=== PATIENT | female | born 2000 | race Hispanic/Latino ===

== ENCOUNTER 2020-07-10 18:09 | Emergency (ER) | payer SELFPAY ==
[2020-07-10] VITALS (12 sets, daily range): BP systolic 115–135; BP diastolic 64–82; PULSE 89–109; RESP 18–26; TEMP 36.1; O2SAT 98–100
--- NOTE | ~2020-07-10 | CT_ITS ---
EXAMINATION: CT abdomen pelvis w con DATE: 07/10/2020 20:07 INDICATION: Epigastric abdominal pain. TECHNIQUE: Computed tomography (CT) of the abdomen and pelvis was performed with 100 mL Omnipaque 350 intravenous contrast. Automated exposure control and iterative reconstruction technique were employe d. The dose-length product was 379.85 mGy-cm. COMPARISON: CT abdomen and pelvis 05/10/2017 FINDINGS: The visualized portions of the lung bases demonstrate minimal atelectasis. No pleural effus ion. The heart size is normal. No pericardial effusion. The liver, gallbladder, spleen, pancreas, adr enal glands, and kidneys are normal. There are no dilated loops of bowel. The appendix is normal. The re are no pathologically enlarged lymph nodes. There is no free intraperitoneal fluid. The bladder is distended. The bones are unremarkable. IMPRESSION: 1. No etiology for the patient's symptoms. Reviewed, dictated and finalized at location A. EED OIL REFINER
--- NOTE | 2020-07-10 18:25 | ED.GENADULT ---
HPI - General Adult General Chief complaint: Abdominal Pain Stated complaint: abd pain Time Seen by Provider: 07/10/20 18:10 Source: patient and family Mode of arrival: ambulatory Limitations: language barrier History of Present Illness HPI narrative: Patient is a 19-year-old female who presents with epigastric abdominal pain that began just prior to arrival patient had eaten some bread and had coffee prior to onset attentionally has had a similar occurrence in the past does take a medicine for reflux unsure as to the name patient presents uncomfortable notes that she has had some nausea and vomiting. Patient denies other injuries or complaints or symptoms. Pain does radiate to the back Related Data Allergies Allergy/AdvReac Type Severity Reaction Status Date / Time No Known Allergies Allergy Verified 07/10/20 18:28 Review of Systems Review of Systems: All systems reviewed & are unremarkable except as noted in HPI and below PMFSH Past Medical History Medical History (Updated 07/10/20 @ 20:29 by Tank Ziegler PA-C) GERD (gastroesophageal reflux disease) Social History Social History (Updated 07/10/20 @ 18:26 by Tank Ziegler PA-C) Smoking status: Never smoker Gender identity (if verbalized by the patient): Female Exam Narrative: Exam Narrative: GENERAL: Well-appearing, well-nourished, uncomfortable and in acute pain distress. HEAD: Normocephalic, atraumatic. EYES: PERRLA and EOMI. ENT: Nares clear, no rhinorrhea or epistaxis. Mucous membranes moist. CHEST: Clear to auscultation. No respiratory distress. No wheezes rales or rhonchi HEART: Regular rate and rhythm. No murmur heard. Normal peripheral pulses. ABDOMEN: Soft, generalized abdominal tenderness worse in the epigastrium, nondistended EXTREMITIES: Normal range of motion. No edema. SKIN: Warm, dry, no rash. NEURO: No focal deficits. Alert and oriented x3. PSYCH: Normal mood and affect. Course Course Emergency Course: Patient in the room feeling much better at this time had evaluation without high risk changes in the blood work or imaging could potentially be reflux or gastritis in relation patient advised to follow with her primary care on Sunday noting she will patient also notes she will follow with the provided GI referral has been given reasons to return and agrees to do so if symptoms worsen Vital Signs Vital signs: Vital Signs Pulse Rate 109 H 07/10/20 18:15 Respiratory Rate 26 H 07/10/20 18:15 Blood Pressure 135/81 07/10/20 18:15 Pulse Oximetry 100 07/10/20 18:15 Temperature 97 F L 07/10/20 18:51 Pulse Rate 109 H 07/10/20 18:15 Respiratory Rate 26 H 07/10/20 18:15 Blood Pressure 123/69 07/10/20 20:29 Pulse Oximetry 100 07/10/20 20:30 Medical Decision Making MDM Narrative Medical decision making narrative: Patient in the room at this time in no distress feeling much better afebrile nontoxic-appearing no distress patient felt appropriate for outpatient reevaluation had marked improvement with the medications to include GI cocktail patient is felt appropriate for outpatient reevaluation Vital Signs Vital Signs: Vital Signs Pulse Rate 109 H 07/10/20 18:15 Respiratory Rate 26 H 07/10/20 18:15 Blood Pressure 135/81 07/10/20 18:15 Pulse Oximetry 100 07/10/20 18:15 Temperature 97 F L 07/10/20 18:51 Pulse Rate 109 H 07/10/20 18:15 Respiratory Rate 26 H 07/10/20 18:15 Blood Pressure 123/69 07/10/20 20:29 Pulse Oximetry 100 07/10/20 20:30 Lab Data Result diagrams: 07/10/20 18:26 07/10/20 18:26 Labs: Lab Results 07/10/20 07/10/20 07/10/20 Range/Units 18:26 18:26 18:26 WBC 11.5 H (4.5-10.0) K/mm3 RBC 4.78 (4.2-5.4) M/mm3 Hgb 13.5 (12.0-15.0) g/dL Hct 40.2 (37.0-47.0) % MCV 84.1 (80-100) fl MCH 28.2 (26-34) pg MCHC 33.6 (32-36) g/dl RDW 12.1 (11.5-14.5) % Plt Count 343 (150-375) k/mm3 M
--- NOTE | 2020-07-10 18:30 | PC.NURSE ---
Pt states is on some medication for her abdominal pain but cannot remember the name of it.
[2020-07-10] MEDS: SODIUM CHLORIDE 0.9% IV 1,000 ML 999 ML IV CONT (18:31)
[2020-07-10] MEDS: ONDANSETRON INJ 4 MG/2 ML VIAL IV PUSH (18:35)
[2020-07-10 18:36] LABS: Basophils Absolute Auto 0.1 K/mm3 (0.0-0.1); Basophils Percent Auto 0.6 % (0.2-1.2); Eosinophils Absolute Auto 0.2 K/mm3 (0-0.3); Eosinophils Percent Auto 1.6 % (0-4.4); Hematocrit 40.2 % (37.0-47.0); Hemoglobin 13.5 g/dL (12.0-15.0); Immature Granulocyte Absolute 0.03 K/mm3 (0.00-0.031); Immature Granulocyte Percent A 0.3 % (0-0.5); Lymphocytes Absolute Auto 4.09 K/mm3 (0.9-3.2); Lymphocytes Percent Auto 35.4 % (18.3-44.2); Mean Corpuscular HGB Conc 33.6 g/dl (32-36); Mean Corpuscular Hemoglobin 28.2 pg (26-34); Mean Corpuscular Volume 84.1 fl (80-100); Mean Platelet Volume 8.6 fl (7.4-10.4); Monocytes Absolute Auto 0.8 K/mm3 (0.1-0.6); Monocytes Percent Auto 7.2 % (2.6-8.5); Neutrophils Absolute Auto 6.3 K/mm3 (1.3-6.7); Neutrophils Percent Auto 54.9 % (45.5-73.1); Platelet Count Result 343 k/mm3 (150-375); Red Blood Count 4.78 M/mm3 (4.2-5.4); Red Cell Distribution Width 12.1 % (11.5-14.5); White Blood Count 11.5 K/mm3 (4.5-10.0)
[2020-07-10] MEDS: PANTOPRAZOLE SODIUM IV 40 MG VIAL IV PUSH (18:39)
[2020-07-10] MEDS: LIDOCAINE HCL 2% VISC SOLN 15 ML UDC 20 ML PO (18:40)
[2020-07-10] MEDS: MAG HYDROX/AL HYDROX/SIMETH 30 ML UDC PO (18:40)
[2020-07-10 18:48] LABS: Alanine Aminotransferase 33 U/L (4-35); Albumin Level 4.6 g/dL (3.5-5.1); Alkaline Phosphatase 92 U/L (38-126); Anion Gap 12 mmol/L (8-16); Aspartate Amino Transferase 35 U/L (14-36); Bilirubin,Total 0.2 mg/dL (0.2-1.3); Blood Urea Nitrogen 17 mg/dL (7-17); Calcium 9.4 mg/dL (8.4-10.2); Carbon Dioxide 25 mmol/L (22-30); Chloride 105 mmol/L (98-107); Estimated Glomerular Filt Rate > 60; Glucose 109 mg/dL (65-105); Lipase 117 U/L (23-300); Potassium 3.6 mmol/L (3.4-5.0); Sodium 142 mmol/L (137-145)
[2020-07-10 18:49] LABS: Lactic Acid Reflex 2.4 mmol/L (0.7-2.1)
--- NOTE | 2020-07-10 18:49 | PC.NURSE ---
Pt to ED with complaints of sudden onset abdominal pain prior to arrival. Pt reports she did eat shortly before the pain started. C/o nausea and vomiting. Denies diarrhea, fevers, constipation, or symptoms. Pt reports she is taking medication for her stomach, but is unsure of what it is and why she is taking it. Pt denies any chances of . Pt is bel[place]ian speaking. Traffic Director at bedside used to obtain hx from pt.
[2020-07-10] MEDS: LACTATED RINGERS 1,000 ML 999 ML IV CONT (19:24)
[2020-07-10 20:41] LABS: Add Urine Microscopic? YES; Appearance Urine Clear (Clear); Bilirubin Urine Negative (Negative); Blood Urine 1+ (Negative); Color Urine Colorless (Yellow); Glucose Urine UA Negative (Negative); Ketones Urine Negative (Negative); Leukocyte Esterase Ur Negative LEU/UL (Negative); Nitrate Urine Negative (Negative); Protein Urine Negative (Negative); RBC Urine 0-2 /hpf (0-2); Specific Grav Ur 1.015 (1.001-1.035); Squamous Epithelial Cell Urine Occasional /hpf (Few); Urobilinogen Urine Negative mg/dL (<2.0); WBC Urine 0-3 /hpf
[2020-07-10 21:34] LABS: Reflex Lactic Acid Yes or No Add Lactic
== END 2020-07-10 21:12 | disposition home or self-care (01) ==
PROVIDERS: Emergency Medicine Emergency Medical Services; Emergency Provider Emergency Medicine; PCP Registered Nurse
DX: R10.13 Epigastric pain (principal); K21.9 Gastro-esophageal reflux disease without esophagitis
CPT/HCPCS: 36415; 74177; 80053; 81001; 81025; 83605; 83690; 85025; 96361; 96365; 96375; 99284; A9270; C9113; J0131; J2405; J7030; J7120; Q9967

== ENCOUNTER 2020-08-31 22:13 | Emergency (ER) | payer SELFPAY ==
--- NOTE | ~2020-08-31 | XR_ITS ---
EXAMINATION: XR hand LT min 3V INDICATION: Left hand pain TECHNIQUE: Three views of the left hand are obtained on four radiographs. COMPARISON: None available FINDINGS: There is no fracture, dislocation, or subluxation. The bones, soft tissues, and joint space s are normal. IMPRESSION: 1. No acute osseous abnormality. Reviewed, dictated and finalized at location A. M [employer]
[2020-08-31 22:14] VITALS: BP 143/89; PULSE 104; RESP 18; TEMP 35.7; O2SAT 100
--- NOTE | 2020-08-31 22:31 | ED.UPPEXIN ---
HPI - Extremity Injury (Upper) General Chief Complaint: Extremity Injury, Upper Stated Complaint: Right hand injury, closed in door Time Seen by Provider: 08/31/20 22:31 History of Present Illness HPI narrative: 19 yo female presents to the ED for a hand injury. She was reaching out to close a metal door when she accidentally struck her right hand against it instead. She has pain and swelling to the fingers of that hand. Limited ROM due to swelling. No wounds or deformity. Related Data Home Medications Medication Instructions Recorded Confirmed No Home Medications 08/31/20 08/31/20 Allergies Allergy/AdvReac Type Severity Reaction Status Date / Time No Known Allergies Allergy Verified 08/31/20 22:23 Review of Systems Review of Systems: All systems reviewed & are unremarkable except as noted in HPI and below Constitutional: Constitutional: Denies weakness Musculoskeletal: Musculoskeletal: Reports arthralgias Neurologic: Denies numbness and Denies weakness Hematologic/Lymphatic: Hematologic/Lymphatic: Denies easy bruising PMFSH Past Medical History Medical History GERD (gastroesophageal reflux disease) Social History Social History Smoking status: Never smoker Gender identity (if verbalized by the patient): Female Exam Const: General: healthy appearing, no acute distress and alert Orientation/consciousness: patient oriented x3 HENMT: Head: normal to inspection Cardio: Other: Brisk capillary refill distal to injury Skin: Other: Bruising to fingers 2-4 Neuro: General: patient oriented x3, moves all extremities, no focal motor deficits and CN's II-XI intact bilaterally Speech: normal speech Gait exam (Neuro): Normal gait present Extrem: Other: Mild limitation in ROM. No deformity Course Vital Signs Vital signs: Vital Signs Temperature 35.7 C L 08/31/20 22:14 Pulse Rate 104 H 08/31/20 22:14 Respiratory Rate 18 08/31/20 22:14 Blood Pressure 143/89 H 08/31/20 22:14 Pulse Oximetry 100 08/31/20 22:14 Temperature 36.6 C 08/31/20 23:35 Pulse Rate 89 08/31/20 23:35 Respiratory Rate 14 08/31/20 23:35 Blood Pressure 135/78 08/31/20 23:35 Pulse Oximetry 96 08/31/20 23:35 MDM - Extremity Injury (Upper) Differential Diagnosis Differential diagnosis: Likely other (finger fracture, contusion) Imaging Data Radiologist's impression: ITS Impressions Hand X-Ray 08/31/20 22:44 IMPRESSION: 1. No acute osseous abnormality. Discharge Plan Discharge Clinical Impression: Contusion of left hand Patient Disposition: Home, Self-Care Condition: Stable Instructions: Contusion in Adults (ED) Prescriptions: No Action No Home Medications RF: 0 Follow-up/Referrals: Goldy,CELSO Hernandez [Primary Care Provider] -
[2020-08-31 23:35] VITALS: BP 135/78; PULSE 89; RESP 14; TEMP 36.6; O2SAT 96
== END 2020-08-31 23:38 | disposition home or self-care (01) ==
PROVIDERS: Emergency Provider Emergency Medicine; PCP Registered Nurse
DX: S60.022A Contusion of left index finger without damage to nail, initial encounter (principal); S60.032A Contusion of left middle finger without damage to nail, initial encounter; S60.042A Contusion of left ring finger without damage to nail, initial encounter; K21.9 Gastro-esophageal reflux disease without esophagitis; W23.0XXA Caught, crushed, jammed, or pinched between moving objects, initial encounter
CPT/HCPCS: 73130; 99283